=== PATIENT | female | born 1970 | race Hispanic/Latino ===

== ENCOUNTER 2021-04-27 10:33 | Emergency (ER) | payer OTHER, SELFPAY ==
[2021-04-27 11:31] VITALS: BP 127/77; PULSE 69; RESP 20; TEMP 36.1; O2SAT 98
--- NOTE | 2021-04-27 11:59 | ED.URI ---
HPI - URI/Sore Throat General Chief Complaint: Upper Respiratory Infection Stated Complaint: wheezing,cough,sob hx of asthma Time Seen by Provider: 04/27/21 12:00 Source: patient and RN notes reviewed Mode of arrival: ambulatory Limitations: no limitations History of Present Illness HPI Narrative: Ngoc is a 50-year-old female patient who ambulated into the [facility]. Patient states she moved here in the last few weeks. Patient states she is had cough and wheezing for the last 2 weeks worse at night. Patient denies any fever or any other symptoms. Patient normally takes albuterol inhaler, Qvar, albuterol nebulizers. Patient states her nebulizer broke at some point and she has not replaced it. Patient denies any shortness of breath. MD elicited complaint: cough Related Data Home Medications Medication Instructions Recorded Confirmed albuterol 1 mcg INHALATION DIRECTED 04/27/21 04/27/21 Allergies Allergy/AdvReac Type Severity Reaction Status Date / Time No Known Allergies Allergy Verified 04/27/21 12:07 Review of Systems Review of Systems: CONSTITUTIONAL: Denies body aches, fever, chills, or sweats. EYES: Denies visual changes, redness, or discharge. ENT: Denies rhinorrhea, congestion, sore throat, or otalgia. CARDIOVASCULAR: Denies chest pain, palpitations, or edema. RESPIRATORY: + cough GASTROINTESTINAL: Denies abdominal pain, nausea, vomiting, or diarrhea. GENITOURINARY: Denies dysuria or hematuria. SKIN: Denies rash, itching, or wounds. MUSCULOSKELETAL: Denies back pain, joint pain, or myalgia. NEUROLOGIC: Denies headache, numbness, tingling, or weakness. PSYCH: Denies depression or anxiety. PMFSH Comments At time of signature, I have reviewed and agree with nursing past medical, surgical, social and family history unless otherwise noted. Please see nursing chart for further information. There is no relevant family history pertinent to the presenting complaint Exam Narrative: GENERAL: Well-appearing, well-nourished, and in no acute distress. HEAD: Normocephalic, atraumatic. EYES: EOMI. No redness or drainage. Conjunctivae normal. ENT: Mucous membranes pink and moist. Nares clear. No rhinorrhea. TMs normal bilaterally. Throat normal. Uvula midline. NECK: Normal AROM. Supple. No lymphadenopathy. CHEST: No respiratory distress. Clear to auscultation. MUSCULOSKELETAL: No bony tenderness. EXTREMITIES: Normal range of motion. No edema. SKIN: Warm, dry, no rash. Capillary refill normal. Normal skin turgor. NEURO: No focal deficits. Alert and oriented x3. Gait steady. PSYCH: Normal affect. No signs of depression or anxiety. Course Vital Signs Vital signs: Vital Signs Temperature 36.1 C L 04/27/21 11:31 Pulse Rate 69 04/27/21 11:31 Respiratory Rate 20 04/27/21 11:31 Blood Pressure 127/77 04/27/21 11:31 Pulse Oximetry 98 04/27/21 11:31 Temperature 36.1 C L 04/27/21 11:31 Pulse Rate 69 04/27/21 11:31 Respiratory Rate 20 04/27/21 11:31 Blood Pressure 127/77 04/27/21 11:31 Pulse Oximetry 98 04/27/21 11:31 Reviewed MDM - URI/Sore Throat MDM Narrative Medical decision making narrative: Patient has chronic asthma and has been out of her albuterol for greater than 2 weeks. Patient will be put on a 5-day course of prednisone and will be given an albuterol inhaler. Patient will be given a primary care physician to follow-up with next week to discuss Qvar and replacement of a nebulizer machine. Patient to go to the ER for severe shortness of breath or any other emergent symptoms. Differential Diagnosis Differential diagnosis: Likely upper respiratory infection and other (Asthma exacerbation, ) Medical Records Attestation: I reviewed the patient's medical records. Critical Care Time Critical Care Time Critical Care Time: No Discharge Plan Discharge Clinical Impression: Asthma Qualifiers: Asthma severity: mild Asthma persistence: intermittent Asthma c
== END 2021-04-27 12:16 | disposition home or self-care (01) ==
PROVIDERS: Emergency Provider Nurse Practitioner Family
DX: J45.20 Mild intermittent asthma, uncomplicated (principal)
CPT/HCPCS: 99203; G0463

== ENCOUNTER → 2022-10-26 10:39 | Outpatient (CLI) | payer OTHER, SELFPAY ==
--- NOTE | ~2022-10-26 | MM_ITS ---
EXAMINATION: MM screening [place] [facility] w cheryl HISTORY: Screening mammogram TECHNIQUE: Craniocaudal and mediolateral oblique 3-D tomosynthesis images were obtained and synthetic 2-D images were generated. CAD analysis was submitted and interpreted. COMPARISON: No prior mammogram is available for comparison at this institution. BREAST PARENCHYMAL COMPOSITION:The breasts are almost entirely fatty FINDINGS: No suspicious mass, calcification, or architectural distortion are identified in either len ast to suggest malignancy. IMPRESSION: No mammographic evidence of malignancy. Recommend routine screening mammography in one year. BI-RADS Category 1: Negative Reviewed, dictated and finalized at location .
== END ==
PROVIDERS: PCP Physician Assistant Medical; Visit Provider Physician Assistant Medical
DX: Z12.31 Encounter for screening mammogram for malignant neoplasm of breast (principal)
CPT/HCPCS: 77063; 77067